=== PATIENT | female | born 1965 | race Caucasian/White ===

== ENCOUNTER 2017-09-23 15:10 | Outpatient (CLI) | payer OTHER | END 2017-09-23 17:00 | disposition home or self-care (01) | LOC: DCC 15:10 | DX: L02.415 Cutaneous abscess of right lower limb (principal); K52.9 Noninfective gastroenteritis and colitis, unspecified; B19.20 Unspecified viral hepatitis C without hepatic coma; F41.9 Anxiety disorder, unspecified; F19.10 Other psychoactive substance abuse, uncomplicated; Z88.2 Allergy status to sulfonamides | CPT/HCPCS: G0463 ==

== ENCOUNTER 2017-12-18 20:41 | Inpatient (IN) | payer OTHER ==
[2017-12-19] MEDS ORDERED: IPRATROPIUM (NEB) 0.5 MG/2.5 ML AMP HHN
[2017-12-19] MEDS ORDERED: LEVALBUTEROL (NEB) 1.25 MG/0.5 ML AMP HHN
[2017-12-19] MEDS: METHYLPREDNISOLONE 125 MG INJ IV ×4 (00:35→23:31)
[2017-12-19] MEDS: clonAZEPAM 0.5 MG TAB PO ×3 (00:36→21:00)
[2017-12-19] MEDS: DEXTROSE 5%-0.45% NACL 500 ML IV (00:50)
[2017-12-19] MEDS: IMIPRAMINE 25 MG TAB PO ×2 (02:05→21:00)
[2017-12-19] MEDS: ZOLPIDEM 5 MG TAB PO (04:51)
[2017-12-19] MEDS: LORAZEPAM 1 MG TAB PO (06:43)
[2017-12-19 06:53] LABS: ADD MAN DIFF? NO
[2017-12-19 06:55] LABS: WHITE BLOOD COUNT 12.6 10^3/ul (4.8-10.8)
[2017-12-19 06:55] LABS: BASOPHILS % 0.1 % (0.0-2.0); HEMATOCRIT 37.7 % (37.0-47.0); HEMOGLOBIN 12.1 g/dl (12.0-16.0); LYMPHOCYTES # 0.9 10^3/ul (0.8-2.9); LYMPHOCYTES % 7.2 % (15.0-51.0); MEAN CORPUSCULAR HEMOGLOBIN 27.5 pg (29.0-33.0); MEAN CORPUSCULAR HGB CONC 32.1 g/dl (32.0-37.0); MEAN CORPUSCULAR VOLUME 85.7 fl (82.0-101.0); MEAN PLATELET VOLUME 12.1 fl (7.4-10.4); MONOCYTE # 0.3 10^3/ul (0.3-0.9); MONOCYTES % 2.3 % (0.0-11.0); NEUTROPHIL # 11.4 10^3/ul (1.6-7.5); NEUTROPHILS % 89.8 % (39.0-77.0); PLATELET COUNT 205 10^3/UL (140-415); RED CELL DISTRIBUTION WIDTH 13.5 % (11.5-14.5)
[2017-12-19 07:21] LABS: ALANINE AMINOTRANSFERASE 27 IU/L (13-69); ALBUMIN 3.8 g/dl (3.3-4.9); ALBUMIN/GLOBULIN RATIO 0.95; ALKALINE PHOSPHATASE 65 IU/L (42-121); ANION GAP 18 (8-16); ASPARTATE AMINO TRANSFERASE 32 IU/L (15-46); BILIRUBIN,INDIRECT 0.1 mg/dl (0-1.1); BILIRUBIN,TOTAL 0.1 mg/dl (0.2-1.3); BLOOD UREA NITROGEN 18 mg/dl (7-20); CALCIUM 9.1 mg/dl (8.4-10.2); CARBON DIOXIDE 28 mmol/L (21-31); CHLORIDE 98 mmol/L (97-110); CREATININE 0.58 mg/dl (0.44-1.00); GLUCOSE 175 mg/dl (70-220); POTASSIUM 4.4 mmol/L (3.5-5.1); SODIUM 140 mmol/L (135-144); TOTAL PROTEIN 7.8 g/dl (6.1-8.1)
[2017-12-19] MEDS: LEVOFLOXACIN 500MG/D5W (PMX) 100 ML IVPB (09:00)
[2017-12-19] MEDS: SERTRALINE 50 MG TAB PO (09:05)
[2017-12-19] MEDS: BUDESONIDE (NEB) 0.5MG/2ML AMP HHN ×2 (09:21→19:20)
[2017-12-19] MEDS: NICOTINE (21 MG/24 HR) PATCH TRANSDERM (09:44)
[2017-12-19] MEDS ORDERED: ONDANSETRON (ODT) 4 MG TAB ODT (17:00)
[2017-12-19] MEDS: OLANZAPINE (ODT) 5 MG TAB PO (17:51)
[2017-12-20] MEDS: METHYLPREDNISOLONE 125 MG INJ IV ×2 (06:20→13:38)
[2017-12-20] MEDS: BUDESONIDE (NEB) 0.5MG/2ML AMP HHN ×2 (07:39→20:00)
[2017-12-20] MEDS: clonAZEPAM 0.5 MG TAB PO ×2 (08:24→20:03)
[2017-12-20] MEDS: NICOTINE (21 MG/24 HR) PATCH TRANSDERM (08:27)
[2017-12-20] MEDS: SERTRALINE 50 MG TAB PO ×2 (08:27→10:52)
[2017-12-20] MEDS: ARIPIPRAZOLE 10 MG TAB PO ×2 (08:27→10:52)
[2017-12-20] MEDS: OLANZAPINE (ODT) 5 MG TAB PO (08:27)
[2017-12-20] MEDS: LEVOFLOXACIN 500MG/D5W (PMX) 100 ML IVPB (08:28)
[2017-12-20 15:00] LABS: ADD MAN DIFF? NO
[2017-12-20 15:02] LABS: BASOPHILS % 0.1 % (0.0-2.0); HEMATOCRIT 40.4 % (37.0-47.0); LYMPHOCYTES # 1.5 10^3/ul (0.8-2.9); MEAN CORPUSCULAR HEMOGLOBIN 27.5 pg (29.0-33.0); MEAN CORPUSCULAR HGB CONC 32.2 g/dl (32.0-37.0); MEAN CORPUSCULAR VOLUME 85.4 fl (82.0-101.0); MEAN PLATELET VOLUME 10.8 fl (7.4-10.4); MONOCYTE # 0.5 10^3/ul (0.3-0.9); NEUTROPHIL # 6.9 10^3/ul (1.6-7.5); NEUTROPHILS % 76.5 % (39.0-77.0); PLATELET COUNT 243 10^3/UL (140-415); RED BLOOD COUNT 4.73 10^6/ul (4.20-5.40); RED CELL DISTRIBUTION WIDTH 13.3 % (11.5-14.5)
[2017-12-20 15:25] LABS: ANION GAP 12 (8-16); BLOOD UREA NITROGEN 17 mg/dl (7-20); CALCIUM 8.5 mg/dl (8.4-10.2); CARBON DIOXIDE 31 mmol/L (21-31); CHLORIDE 99 mmol/L (97-110); CREATININE 0.59 mg/dl (0.44-1.00); GLUCOSE 110 mg/dl (70-220); POTASSIUM 4.5 mmol/L (3.5-5.1); SODIUM 137 mmol/L (135-144)
[2017-12-20] MEDS: ACETAMINOPHEN 500 MG TAB PO ×2 (16:35→22:55)
[2017-12-20] MEDS: METHYLPREDNISOLONE 40 MG INJ IV (20:02)
[2017-12-20] MEDS: IMIPRAMINE 25 MG TAB PO (20:03)
[2017-12-20] MEDS: ZOLPIDEM 5 MG TAB PO (22:55)
[2017-12-21] MEDS: ACETAMINOPHEN 500 MG TAB PO (06:17)
[2017-12-21] MEDS: AL HYDROX/MG HYDROX/SIMETH 30 ML CUP PO (06:17)
[2017-12-21] MEDS: NICOTINE (21 MG/24 HR) PATCH TRANSDERM (09:00)
[2017-12-21] MEDS: BUDESONIDE (NEB) 0.5MG/2ML AMP HHN ×2 (09:00→21:23)
[2017-12-21] MEDS: clonAZEPAM 0.5 MG TAB PO ×2 (09:11→21:00)
[2017-12-21] MEDS: LEVOFLOXACIN 500MG/D5W (PMX) 100 ML IVPB (09:11)
[2017-12-21] MEDS: METHYLPREDNISOLONE 40 MG INJ IV (09:11)
[2017-12-21] MEDS: SERTRALINE 50 MG TAB PO (09:11)
[2017-12-21] MEDS: ARIPIPRAZOLE 10 MG TAB PO (09:11)
[2017-12-21 10:52] LABS: ADD MAN DIFF? NO
[2017-12-21 10:54] LABS: BASOPHILS % 0.1 % (0.0-2.0); EOSINOPHILS % 0.1 % (0.0-7.0); HEMATOCRIT 41.3 % (37.0-47.0); HEMOGLOBIN 13.4 g/dl (12.0-16.0); LYMPHOCYTES # 1.6 10^3/ul (0.8-2.9); LYMPHOCYTES % 16.1 % (15.0-51.0); MEAN CORPUSCULAR HGB CONC 32.4 g/dl (32.0-37.0); MEAN CORPUSCULAR VOLUME 83.3 fl (82.0-101.0); MEAN PLATELET VOLUME 11.2 fl (7.4-10.4); MONOCYTE # 0.9 10^3/ul (0.3-0.9); MONOCYTES % 8.6 % (0.0-11.0); NEUTROPHIL # 7.4 10^3/ul (1.6-7.5); NEUTROPHILS % 74.7 % (39.0-77.0); PLATELET COUNT 250 10^3/UL (140-415); RED BLOOD COUNT 4.96 10^6/ul (4.20-5.40); RED CELL DISTRIBUTION WIDTH 13.4 % (11.5-14.5)
[2017-12-21 11:22] LABS: ANION GAP 8 (8-16); BLOOD UREA NITROGEN 19 mg/dl (7-20); CALCIUM 8.7 mg/dl (8.4-10.2); CARBON DIOXIDE 33 mmol/L (21-31); CHLORIDE 100 mmol/L (97-110); CREATININE 0.51 mg/dl (0.44-1.00); GLUCOSE 113 mg/dl (70-220); POTASSIUM 4.1 mmol/L (3.5-5.1); SODIUM 137 mmol/L (135-144)
[2017-12-21] MEDS: PANTOPRAZOLE (EC) 40 MG TAB PO (17:21)
[2017-12-21] MEDS: IMIPRAMINE 25 MG TAB PO (21:00)
[2017-12-22] MEDS: PANTOPRAZOLE (EC) 40 MG TAB PO (05:20)
[2017-12-22] MEDS: BUDESONIDE (NEB) 0.5MG/2ML AMP HHN ×2 (08:25→20:00)
[2017-12-22] MEDS: ARIPIPRAZOLE 10 MG TAB PO (08:34)
[2017-12-22] MEDS: clonAZEPAM 0.5 MG TAB PO ×2 (08:34→21:03)
[2017-12-22] MEDS: SERTRALINE 50 MG TAB PO (08:34)
[2017-12-22] MEDS: NICOTINE (21 MG/24 HR) PATCH TRANSDERM (09:00)
[2017-12-22] MEDS: predniSONE 20 MG TAB PO (09:00)
[2017-12-22] MEDS: LEVOFLOXACIN 500MG/D5W (PMX) 100 ML IVPB (11:00)
[2017-12-22] MEDS: IMIPRAMINE 25 MG TAB PO (21:04)
[2017-12-23] MEDS: ACETAMINOPHEN 500 MG TAB PO (04:42)
[2017-12-23] MEDS: PANTOPRAZOLE (EC) 40 MG TAB PO (05:40)
[2017-12-23] MEDS: LEVOFLOXACIN 500 MG TAB PO (05:40)
[2017-12-23] MEDS: ARIPIPRAZOLE 10 MG TAB PO (08:39)
[2017-12-23] MEDS: clonAZEPAM 0.5 MG TAB PO ×2 (08:39→20:48)
[2017-12-23] MEDS: predniSONE 20 MG TAB PO (08:39)
[2017-12-23] MEDS: SERTRALINE 50 MG TAB PO (08:39)
[2017-12-23] MEDS: NICOTINE (21 MG/24 HR) PATCH TRANSDERM (08:41)
[2017-12-23] MEDS: BUDESONIDE (NEB) 0.5MG/2ML AMP HHN ×2 (09:00→21:11)
[2017-12-23 19:04] LABS: ADD UMIC NO; UR ASCORBIC ACID 20 mg/dL (NEGATIVE); UR BILIRUBIN (Dip) NEGATIVE (NEGATIVE); UR BLOOD (Dip) NEGATIVE (NEGATIVE); UR CLARITY CLEAR (CLEAR); UR COLOR STRAW (YELLOW); UR GLUCOSE (Dip) NEGATIVE (NEGATIVE); UR KETONES (Dip) NEGATIVE (NEGATIVE); UR LEUKOCYTE ESTERASE (Dip) NEGATIVE Leu/ul (NEGATIVE); UR NITRITE (Dip) NEGATIVE (NEGATIVE); UR SPECIFIC GRAVITY (Dip) 1.006 (1.003-1.030); UR TOTAL PROTEIN (Dip) NEGATIVE (NEGATIVE); UR UROBILINOGEN (Dip) NEGATIVE (NEGATIVE)
[2017-12-23] MEDS: IMIPRAMINE 25 MG TAB PO (20:48)
[2017-12-24] MEDS: LEVOFLOXACIN 500 MG TAB PO (05:53)
[2017-12-24] MEDS: PANTOPRAZOLE (EC) 40 MG TAB PO (05:53)
[2017-12-24] MEDS: ACETAMINOPHEN 500 MG TAB PO (06:25)
[2017-12-24] MEDS: LORAZEPAM 1 MG TAB PO (07:44)
[2017-12-24] MEDS: clonAZEPAM 0.5 MG TAB PO (09:00)
[2017-12-24] MEDS: SERTRALINE 50 MG TAB PO (09:00)
[2017-12-24] MEDS: NICOTINE (21 MG/24 HR) PATCH TRANSDERM (09:00)
[2017-12-24] MEDS: ARIPIPRAZOLE 10 MG TAB PO (09:00)
[2017-12-24] MEDS: predniSONE 10 MG TAB PO (09:00)
[2017-12-24] MEDS: BUDESONIDE (NEB) 0.5MG/2ML AMP HHN (10:21)
== END 2017-12-24 15:20 | disposition home or self-care (01) | DRG 191 ==
LOC: MS4 20:41 → PP2 12-19 15:36
DX: J44.1 Chronic obstructive pulmonary disease with (acute) exacerbation (principal); R65.10 Systemic inflammatory response syndrome (SIRS) of non-infectious origin without acute organ dysfunction; R64 Cachexia; F22 Delusional disorders; F25.1 Schizoaffective disorder, depressive type; F15.10 Other stimulant abuse, uncomplicated; F11.10 Opioid abuse, uncomplicated; F17.210 Nicotine dependence, cigarettes, uncomplicated; R09.02 Hypoxemia; Z68.21 Body mass index [BMI] 21.0-21.9, adult; Z59.0 Homelessness; Z91.19 Patient's noncompliance with other medical treatment and regimen
CPT/HCPCS: 80048; 80053; 81003; 85025; 87081; 87086; 94640; 94664